=== PATIENT | female | born 1945 | race Two or more races ===

== ENCOUNTER 2018-11-30 10:18 | Outpatient (CLI) | payer OTHER | END 2018-11-30 10:25 | disposition home or self-care (01) | LOC: RAD 10:18 | DX: R07.89 Other chest pain (principal) ==

== ENCOUNTER → 2018-11-30 | Outpatient (CLI) | payer OTHER | END | disposition home or self-care (01) | LOC: NUCLEAR 09:29 | DX: M81.0 Age-related osteoporosis without current pathological fracture (principal) ==

== ENCOUNTER 2018-12-01 10:18 | Outpatient (CLI) | payer OTHER | END 2018-12-01 10:22 | disposition home or self-care (01) | LOC: MAMO-SONO 10:18 | DX: Z12.31 Encounter for screening mammogram for malignant neoplasm of breast (principal); Z87.898 Personal history of other specified conditions; N64.59 Other signs and symptoms in breast ==

== ENCOUNTER 2018-12-22 09:38 | Outpatient (CLI) | payer OTHER | END 2018-12-22 09:42 | disposition home or self-care (01) | LOC: RAD 09:38 | DX: M79.642 Pain in left hand (principal); M77.22 Periarthritis, left wrist ==

== ENCOUNTER 2019-04-23 08:36 | Outpatient (CLI) | payer OTHER | END 2019-04-25 13:20 | disposition home or self-care (01) | LOC: RAD 08:36 | DX: M48.061 Spinal stenosis, lumbar region without neurogenic claudication (principal) ==

== ENCOUNTER 2019-06-28 08:29 | Outpatient (CLI) | payer OTHER | END 2019-06-28 09:01 | disposition home or self-care (01) | LOC: SONOGRAMA 08:29 → MAMO-SONO 08:45 → SONOGRAMA 09:01 | DX: M79.642 Pain in left hand (principal); M79.641 Pain in right hand ==

== ENCOUNTER 2019-08-08 13:55 | Emergency (ER) | payer OTHER ==
[~2019-08-08] VITALS: Ht 162.6 cm; Wt 58.5 kg
[2019-08-08] MEDS ORDERED: ATENOLOL-CHLOR1 EACH (14:16)
[2019-08-08] MEDS ORDERED: TORADOL60 MG IM (19:43)
[2019-08-08] MEDS ORDERED: CELEBREX100 MG PO (19:43)
[2019-08-08] MEDS ORDERED: SKELAXIN800 MG PO (19:43)
[2019-08-08] MEDS ORDERED: TRAMADOL HCL50 MG PO (19:43)
== END 2019-08-08 20:19 ==
LOC: ER 13:55
DX: M13.872 Other specified arthritis, left ankle and foot (principal); M79.605 Pain in left leg

== ENCOUNTER → 2019-09-03 | Outpatient (CLI) | payer OTHER ==
[~2019-09-03] MED LIST: ATENOLOL-CHLOR1 EACH; CELEBREX100 MG PO; SKELAXIN800 MG PO; TORADOL60 MG IM; TRAMADOL HCL50 MG PO
== END | disposition home or self-care (01) ==
LOC: RAD 09:55
DX: M54.12 Radiculopathy, cervical region (principal)

== ENCOUNTER 2021-04-09 08:29 | Outpatient (CLI) | payer OTHER | END 2021-04-09 08:36 | disposition home or self-care (01) | LOC: MAMO-SONO 08:29 | DX: N64.59 Other signs and symptoms in breast (principal) ==

== ENCOUNTER 2021-05-09 13:24 | Outpatient (CLI) | payer OTHER | END 2021-05-09 13:25 | disposition home or self-care (01) | LOC: NUCLEAR 13:24 | DX: M85.9 Disorder of bone density and structure, unspecified (principal); M81.0 Age-related osteoporosis without current pathological fracture ==

== ENCOUNTER 2022-06-19 08:44 | Outpatient (CLI) | payer OTHER | END 2022-06-19 08:57 | disposition home or self-care (01) | LOC: RAD 08:44 | PROVIDERS: ATTEND General Practice | DX: Z12.31 Encounter for screening mammogram for malignant neoplasm of breast (principal); N64.59 Other signs and symptoms in breast; R07.9 Chest pain, unspecified ==

== ENCOUNTER → 2022-11-06 08:00 | Outpatient (CLI) | payer OTHER ==
[~2022-11-06] VITALS: Ht 162.6 cm; Wt 53.5 kg
[~2022-11-06 08:00] MED LIST changes: +ADULT LOW DOSE81 M1 PO; +CILOSTAZOL100 MG PO; +COZAAR50 MG PO; +LIPITOR40 M1 PO; +PLAVIX75 MG PO; +SERTRA PO
== END | disposition home or self-care (01) ==
LOC: LAB 08:00 → SURG 11-11 08:00 → EDSTATUS 11-18 08:00 → SURG 11-18 10:45
PROVIDERS: ATTEND Specialist
DX: C50.411 Malignant neoplasm of upper-outer quadrant of right female breast (principal); E11.9 Type 2 diabetes mellitus without complications; I10 Essential (primary) hypertension

== ENCOUNTER 2023-01-09 08:15 | Inpatient (IN) | payer OTHER ==
[~2023-01-09] VITALS: Ht 152.4 cm; Wt 52.2 kg
== END 2023-01-14 09:51 | disposition home or self-care (01) | DRG 583 ==
LOC: O/R 01-13 04:46 → SURH 01-13 07:00
PROVIDERS: ADMIT Specialist; ATTEND Specialist
PROC: 0HTT0ZZ Resection of Right Breast, Open Approach (ICD-10-PCS; principal; 2023-01-13 07:00)
DX: C50.911 Malignant neoplasm of unspecified site of right female breast (principal); Z20.822 Contact with and (suspected) exposure to COVID-19

== ENCOUNTER 2023-02-26 07:41 | Outpatient (CLI) | payer OTHER | END 2023-02-26 07:42 | disposition home or self-care (01) | LOC: NUCLEAR 07:41 | PROVIDERS: ATTEND Internal Medicine Hematology & Oncology | DX: C50.411 Malignant neoplasm of upper-outer quadrant of right female breast (principal); C77.3 Secondary and unspecified malignant neoplasm of axilla and upper limb lymph nodes; Z17.0 Estrogen receptor positive status [ER+] | CPT/HCPCS: 78815; A9552 ==

== ENCOUNTER 2023-03-10 07:29 | Outpatient (CLI) | payer OTHER | END 2023-03-10 07:34 | disposition home or self-care (01) | LOC: RAD 07:29 | DX: S72.142D Displaced intertrochanteric fracture of left femur, subsequent encounter for closed fracture with routine healing (principal) ==